=== PATIENT | male | born 1985 | race American Indian/Alaskan Native ===

== ENCOUNTER 2019-01-25 18:22 | Emergency (ER) | payer SELFPAY ==
[2019-01-25 18:49] VITALS: BP 109/73
--- NOTE | 2019-01-25 18:49 | Event Note ---
ED Screening Note ED Screening Note: cough, diarrhea pt links this with inhaling fumes in [place] rx none psh none pmh none This initial assessment/diagnostic orders/clinical plan/treatment(s) is/are subject to change based on patients health status, clinical progression and re- assessment by fellow clinical providers in the ED. Further treatment and workup at subsequent clinical providers discretion. Patient/guardian urged not to elope from the ED as their condition may be serious if not clinically assessed and managed. Initial orders include: xr ro pneumonitis/pulm edema
--- NOTE | 2019-01-25 20:02 | XRay Report ---
CHEST 2 VIEWS INDICATION / CLINICAL INFORMATION: chest pain. COMPARISON: None available. FINDINGS: SUPPORT DEVICES: None. HEART / MEDIASTINUM: No significant abnormality. LUNGS / PLEURA: No significant pulmonary or pleural abnormality. No pneumothorax. ADDITIONAL FINDINGS: No significant additional findings. IMPRESSION: 1. No acute findings. Signer Name: Maninder Jones MD Signed: 01/25/2019 7:58 PM Workstation Name: [id number]
== END 2019-01-25 22:31 | disposition left against medical advice (07) ==
LOC: ED 18:22
DX: R11.10 Vomiting, unspecified (principal); Z53.21 Procedure and treatment not carried out due to patient leaving prior to being seen by health care provider
CPT/HCPCS: 71046